=== PATIENT | female | born 1955 | race Caucasian/White ===

== ENCOUNTER 2018-06-22 13:26 | Emergency (ER) | payer BC ==
[~2018-06-22] VITALS: Ht 154.9 cm; Wt 73.0 kg
[2018-06-22] MEDS ORDERED: HYDR25TA4 PO (13:36)
--- NOTE | 2018-06-22 13:41 | NUR ---
PT IS IN ROOM #1B. DR ARMENDARIZ EVALUATED THE PT.
[2018-06-22] MEDS ORDERED: FAMOTIDINE. 20 MG/2 ML VIAL IV ONE ×2 (13:45→13:58)
[2018-06-22] MEDS ORDERED: methylPREDNISolone SOD SUCC 125 MG/2 ML VIAL IV ONE (13:45)
[2018-06-22] MEDS ORDERED: diphenhydrAMINE 50 MG/1 ML VIAL IV ONE (13:45)
[2018-06-22] MEDS ORDERED: methylPREDNISolone SOD SUCC 125 MG/2 ML VIAL ONE (13:58)
[2018-06-22] MEDS ORDERED: diphenhydrAMINE 50 MG/1 ML VIAL ONE (13:58)
--- NOTE | 2018-06-22 15:00 | NUR ---
PT WAS D/C'd TO HOME. D/C INSTRUCTIONS GIVEN TO THE PT.
[2018-06-22 15:03] VITALS: BP 128/73
== END 2018-06-22 15:24 | disposition home or self-care (01) ==
LOC: ER 13:26
DX: T78.40XA Allergy, unspecified, initial encounter (principal); I10 Essential (primary) hypertension; Z88.8 Allergy status to other drugs, medicaments and biological substances; Z79.899 Other long term (current) drug therapy
CPT/HCPCS: 96374; 96375; 99283; J1200; J2930; J3490; A4663; J7030